=== PATIENT | male | born 1975 | race African-American/Black ===

== ENCOUNTER 2019-08-05 17:21 | Emergency (ER) | payer BC, OTHER ==
--- NOTE | 2019-08-05 18:23 | RAD REPORT ---
EXAM DESCRIPTION: CT - Head Brain Wo Cont - 08/05/2019 6:13 pm CLINICAL HISTORY: Headache COMPARISON: None. TECHNIQUE: Computed axial tomography of the head was obtained. IV contrast was not requested. All CT scans are performed using dose optimization technique as appropriate and may include automated exposure control or mA/KV adjustment according to patient size. FINDINGS: An intracranial bleed is not seen . The ventricles are normal in caliber. No extra-axial fluid collection is noted. Fluid within the sinuses/ mastoids is not seen. IMPRESSION: No acute intracranial abnormality is seen. If patient's symptoms persist MRI of the bra in would be recommended.
--- NOTE | 2019-08-05 18:38 | EDPHYS ---
Physician Documentation [facility] Name: Petar Montano Age: 44 yrs Sex: Male : 1975 Arrival Date: 08/05/2019 Time: 17:25 Bed 2 Private MD: ED Physician Bridger Dos Santos HPI: 08/04 18:25 This 44 yrs old Black Male presents to ER via Ambulatory with complaints of Headache, pm1 Dizziness. 18:25 The patient complains of pain to the right base of the skull. The patient describes the pm1 headache as aching. Onset: The symptoms/episode began/occurred yesterday. Associated signs and symptoms: Pertinent positives: dizziness, bump on scalp at the area of headache, Pertinent negatives: fever, nausea, neck stiffness, paresthesias, Photophobia rash, vomiting. Headache History: Denies prior headaches. The symptoms are alleviated by nothing. the symptoms are aggravated by nothing. The patient has not experienced similar symptoms in the past. The patient has not recently seen a physician. Historical: - Allergies: 17:43 No Known Allergies; iw - Home Meds: 17:43 None [Active]; iw - PMHx: 17:49 Hypertension; sv - PSHx: 17:43 None; iw - Immunization history:: Adult Immunizations. - Social history:: Smoking status: . ROS: 18:25 Constitutional: Negative for fever, chills, and weight loss, Neck: Negative for injury, pm1 pain, and swelling, Cardiovascular: Negative for chest pain, palpitations, and edema, Respiratory: Negative for shortness of breath, cough, wheezing, and pleuritic chest pain, Abdomen/GI: Negative for abdominal pain, nausea, vomiting, diarrhea, and constipation, Back: Negative for injury and pain, MS/Extremity: Negative for injury and deformity. 18:25 Skin: Positive for swelling, of the right base of the skull. 18:25 Neuro: Positive for dizziness, headache, Negative for numbness, tingling, weakness. Exam: 18:25 Constitutional: This is a well developed, well nourished patient who is awake, alert, pm1 and in no acute distress. 18:25 Neck: Trachea midline, no thyromegaly or masses palpated, and no cervical lymphadenopathy. Supple, full range of motion without nuchal rigidity, or vertebral point tenderness. No Meningismus. Chest/axilla: Normal chest wall appearance and motion. Nontender with no deformity. No lesions are appreciated. 18:25 Back: No spinal tenderness. No costovertebral tenderness. Full range of motion. 18:25 MS/ Extremity: Pulses equal, no cyanosis. Neurovascular intact. Full, normal range of motion. 18:25 Head/face: Noted is no obvious of injury or deformity except tenderness, that is mild, of the right base of the skull, of the Small acne/razor bump present to area of tenderness. 18:25 Cardiovascular: Exam negative for acute changes, Rate: normal, Rhythm: regular, Pulses: no pulse deficits are appreciated, Edema: is not appreciated. 18:25 Respiratory: Exam negative for acute changes, shortness of breath, wheezing. 18:25 Abdomen/GI: Inspection: obese Palpation: abdomen is soft and non-tender, in all quadrants, mass, is not appreciated, rebound tenderness, is not appreciated. 18:25 Skin: Appearance: normal except for affected area, lesion(s), probable papule(s) noted, located on the right base of the skull. 18:25 Neuro: Exam negative for acute changes, focal neuro deficits, Orientation: is normal, Mentation: is normal, appropriate for stated age, Motor: is normal, moves all fours, strength is normal, strength is 5/5 in all extremities. Vital Signs: 17:49 BP 148 / 84; Pulse 58; Resp 16; Temp 99; Pulse Ox 99% ; sv MDM: 17:53 Patient medically screened. pm1 18:31 Data reviewed: vital signs. Data interpreted: Pulse oximetry: on room air is 99 %. pm1 Interpretation: normal. 18:33 Counseling: I had a detailed discussion with the patient and/or guardian regarding: the pm1 historical points, exam findings, and any diagnostic results supporting the discharge/admit diagnosis, radiology results, the need for outpatient follow up, to return to the emergency department if symptoms worsen or persist or if there are any questions or concerns that arise at home. 08/04 17:58 Order name: CT Head Brain wo Cont; Complete Time: 18:31 pm1 Administered Medications: No medications were administered Disposition: 18:53 Co-signature as Attending Physician, Bridger Dos Santos MD. rn Disposition: 08/05/19 18:37 Discharged to Home. Impression: Headache, Folliculitis. - Condition is Stable. - Discharge Instructions: General Headache Without Cause, Folliculitis. - Prescriptions for Bactrim DS 800- 160 mg Oral Tablet - take 1 tablet by ORAL route every 12 hours for 10 days; 20 tablet. - Medication Reconciliation Form, Thank You Letter, Antibiotic Education, Prescription Opioid Use form. - Follow up: Emergency Department; When: As needed; Reason: Worsening of condition. Follow up: Private Physician; When: 2 - 3 days; Reason: Recheck today's complaints, Continuance of care, Re-evaluation by your physician. - Problem is new. - Symptoms have improved. Signatures: Dispatcher [employer] EDUna Merritt RN RN sv Williams, Irene, RN RN iw Bridger Dos Santos MD MD rn Marinas, Patrick, [facility] REGISTERED NURSE pm1 Corrections: (The following items were deleted from the chart) 17:49 17:43 PMHx: None; [facility] 18:45 18:37 08/05/2019 18:37 Discharged to Home. Impression: Headache; Acne, unspecified. pm1 Condition is Stable. Forms are Medication Reconciliation Form, Thank You Letter, Antibiotic Education, Prescription Opioid Use. Follow up: Emergency Department; When: As needed; Reason: Worsening of condition. Follow up: Private Physician; When: 2 - 3 days; Reason: Recheck today's complaints, Continuance of care, Re-evaluation by your physician. Problem is new. Symptoms have improved. pm1 18:51 18:45 08/05/2019 18:37 Discharged to Home. Impression: Headache; Folliculitis. sv Condition is Stable. Forms are Medication Reconciliation Form, Thank You Letter, Antibiotic Education, Prescription Opioid Use. Follow up: Emergency Department; When: As needed; Reason: Worsening of condition. Follow up: Private Physician; When: 2 - 3 days; Reason: Recheck today's complaints, Continuance of care, Re-evaluation by your physician. Problem is new. Symptoms have improved. pm1
--- NOTE | 2019-08-05 18:38 | ER ---
Nurse's Notes [facility] Name: Petar Montano Age: 44 yrs Sex: Male : 1975 Arrival Date: 08/05/2019 Time: 17:25 Bed 2 Private MD: Diagnosis: Headache;Folliculitis Presentation: 08/04 17:41 Chief complaint: Patient states: noticed some swelling to back right side of head iw today, had headache yesterday. Coronavirus screen: Proceed with normal triage. Patient denies a cough. Patient denies shortness of breath or difficulty breathing. Patient denies travel on a cruise ship or to a country the [facility] currently lists as an affected area. Patient denies contact with known and/or suspected case of COVID-19. Ebola Screen: Patient negative for fever greater than or equal to 101.5 degrees Fahrenheit, and additional compatible Ebola Virus Disease symptoms Patient denies exposure to infectious person. Patient denies travel to an Ebola-affected area in the 21 days before illness onset. No symptoms or risks identified at this time. Initial Sepsis Screen: Does the patient meet any 2 criteria? No. Patient's initial sepsis screen is negative. Does the patient have a suspected source of infection? No. Patient's initial sepsis screen is negative. Risk Assessment: Do you want to hurt yourself or someone else? Patient reports no desire to harm self or others. Onset of symptoms was August 05, 2019. 17:41 Method Of Arrival: Ambulatory iw 17:41 Acuity: STELLA 4 iw Triage Assessment: 17:45 Headache History: The patient has had previous headaches and this one is similar to sv previous episodes. General: Appears in no apparent distress. comfortable, well developed, Behavior is calm, cooperative, appropriate for age. Pain: Complains of pain in right base of the skull Pain currently is 2 out of 10 on a pain scale. Pain began today Is intermittent, Also complains of no other associated symptoms. Neuro: Level of Consciousness is awake, alert, obeys commands, Oriented to person, place, time, situation, Moves all extremities. Full function Gait is steady, Speech is normal. Neuro: Reports dizziness. Respiratory: Airway is patent Respiratory effort is even, unlabored, Respiratory pattern is regular, symmetrical. Derm: Skin is pink, warm \T\ dry. Derm: pinpoint area noted to the right base of the skull. Pt reports that he clips his hair and gets ingrown hairs at times. Musculoskeletal: Range of motion: intact in all extremities. Historical: - Allergies: 17:43 No Known Allergies; iw - Home Meds: 17:43 None [Active]; iw - PMHx: 17:49 Hypertension; sv - PSHx: 17:43 None; iw - Immunization history:: Adult Immunizations. - Social history:: Smoking status: . Screenin:49 Abuse screen: Denies threats or abuse. Denies injuries from another. Nutritional sv screening: No deficits noted. Tuberculosis screening: No symptoms or risk factors identified. Fall Risk None identified. Assessment: 18:50 Reassessment: Patient appears in no apparent distress at this time. No changes from sv previously documented assessment. Patient and/or family updated on plan of care and expected duration. Pain level reassessed. Patient is alert, oriented x 3, equal unlabored respirations, skin warm/dry/pink. Vital Signs: 17:49 BP 148 / 84; Pulse 58; Resp 16; Temp 99; Pulse Ox 99% ; sv ED Course: 17:25 Patient arrived in ED. am2 17:42 Triage completed. iw 17:43 Una Moya, RN is Primary Nurse. sv 17:49 Arm band placed on Patient placed in an exam room, on a stretcher. sv 17:49 Patient has correct armband on for positive identification. Bed in low position. Call sv light in reach. Pulse ox on. NIBP on. Door closed. Head of bed elevated. 17:50 Clarence Archer NP is PHCP. pm1 17:50 Bridger Dos Santos MD is Attending Physician. pm1 18:[address] Scan. sv 18:14 CT Head Brain wo Cont In Process Unspecified. EDMS 18:50 No provider procedures requiring assistance completed. Patient did not have IV access sv during this emergency room visit. Administered Medications: No medications were administered Outcome: 18:37 Discharge ordered by . pm1 18:50 Discharged to home ambulatory. sv 18:50 Condition: stable 18:50 Discharge instructions given to patient, Instructed on discharge instructions, follow up and referral plans. medication usage, wound care, Demonstrated understanding of instructions, follow-up care, medications, wound care, Prescriptions given X 1. 18:51 Patient left the ED. sv Signatures: Dispatcher [employer] Una Palacios RN RN sv Williams, Irene, RN RN iw Clarence Archer, TANK PUMPER TANK PUMPER pm1 Katlin Rg am2 Corrections: (The following items were deleted from the chart) 17:49 17:43 PMHx: None; kun holloway
== END 2019-08-05 18:51 | disposition home or self-care (01) ==
LOC: ER 17:21
DX: L73.9 Follicular disorder, unspecified (principal); I10 Essential (primary) hypertension
CPT/HCPCS: 70450; 99283

== ENCOUNTER 2019-11-06 16:15 | Emergency (ER) | payer BC, SELFPAY ==
[2019-11-06 17:33] LABS: Absolute Lymphocytes (CBC) 1.9 K/uL (0.7-4.9); Basophils % 0.6 % (0-1.3); Hematocrit 45.9 % (39.6-49.0); MPV 9.8 fL (7.6-11.3); RBC Red Blood Cell Count 5.24 M/uL (4.33-5.43)
[2019-11-06 17:57] LABS: ALT/SGPT 44 U/L (12-78); AST/SGOT 30 U/L (15-37); Albumin 3.7 g/dL (3.4-5.0); Alkaline Phosphatase 126 U/L (45-117); BUN Blood Urea Nitrogen 12 mg/dL (7-18); Bicarbonate 26 mmol/L (21-32); Bilirubin Direct < 0.1 mg/dL (0-0.2); Bilirubin Total 0.3 mg/dL (0.2-1.0); Glucose Level 106 mg/dL (74-106); Magnesium 2.2 mg/dL (1.8-2.4); NT PRO-BNP 92 pg/mL (<125); Potassium 4.1 mmol/L (3.5-5.1); Protein, Total 8.4 g/dL (6.4-8.2); Sodium Level 143 mmol/L (136-145); Troponin (Emerg Dept Use Only) < 0.02 ng/mL (0.0-0.045)
[2019-11-06 18:04] LABS: Protime INR 1.1
--- NOTE | 2019-11-06 18:04 | RAD REPORT ---
EXAM DESCRIPTION: RAD - Chest Single View - 11/06/2019 5:56 pm CLINICAL HISTORY: CHEST PAIN Chest pain. COMPARISON: No comparisons FINDINGS: Portable technique limits examination quality. The lungs are grossly clear. The heart is normal in size. No displaced fractures. IMPRESSION: No acute intrathoracic process suspected.
[2019-11-06] MEDS ORDERED: DIAZEPAM 5 MG TABLET ONE (18:08)
--- NOTE | 2019-11-06 18:26 | ER ---
Nurse's Notes [facility] Name: Petar Montano Age: 44 yrs Sex: Male : 1975 Arrival Date: 11/06/2019 Time: 16:16 Bed 2 Private MD: Diagnosis: Chest pain, unspecified;Essential (primary) hypertension Presentation: 11/05 16:48 Chief complaint: Patient states: both calves and thighs have been cramping and has been iw having pain in left side of chest X 3 days. intermittent sharp pains, also has been feeling dizzy. Coronavirus screen: Client denies travel out of the [place] in the last 14 days. Patient denies a cough. Patient denies shortness of breath or difficulty breathing. Patient denies measured and/or subjective temperature greater than 100.4F prior to today's visit. Patient denies travel on a cruise ship or to a country the [facility] currently lists as an affected area. Patient denies contact with known and/or suspected case of COVID-19. Ebola Screen: Patient negative for fever greater than or equal to 101.5 degrees Fahrenheit, and additional compatible Ebola Virus Disease symptoms Patient denies exposure to infectious person. Patient denies travel to an Ebola-affected area in the 21 days before illness onset. No symptoms or risks identified at this time. Initial Sepsis Screen: Does the patient meet any 2 criteria? No. Patient's initial sepsis screen is negative. Does the patient have a suspected source of infection? No. Patient's initial sepsis screen is negative. Risk Assessment: Do you want to hurt yourself or someone else? Patient reports no desire to harm self or others. Onset of symptoms was November 03, 2019. 16:48 Method Of Arrival: Ambulatory iw 16:48 Acuity: STELLA 3 iw Triage Assessment: 16:50 General: Appears in no apparent distress. uncomfortable, obese, Behavior is bp cooperative, appropriate for age, anxious. Pain: Complains of pain in chest, right leg and left leg. EENT: No deficits noted. Neuro: No deficits noted. Cardiovascular: Rhythm is sinus rhythm. Respiratory: Airway is patent Respiratory effort is even, unlabored, Respiratory pattern is regular, symmetrical, Breath sounds are clear bilaterally. GI: No signs and/or symptoms were reported involving the gastrointestinal system. : No signs and/or symptoms were reported regarding the genitourinary system. Derm: No deficits noted. Musculoskeletal: No deficits noted. Historical: - Allergies: 16:50 No Known Allergies; iw - Home Meds: 16:50 None [Active]; iw - PMHx: 16:50 Hypertension; iw - PSHx: 16:50 None; iw - Immunization history:: Adult Immunizations. - Social history:: Smoking status: Patient denies any tobacco usage or history of. Screenin:52 Abuse screen: Denies threats or abuse. Denies injuries from another. Nutritional bp screening: No deficits noted. Tuberculosis screening: No symptoms or risk factors identified. Fall Risk None identified. Assessment: 16:50 General: SEE TRIAGE NOTE. bp 18:00 Reassessment: ALL CURRENT ORDERS COMPLETED. VS STABLE ON MONITOR. bp 19:29 Reassessment: Patient appears in no apparent distress at this time. Patient and/or jd3 family updated on plan of care and expected duration. Pain level reassessed. Patient is alert, oriented x 3, equal unlabored respirations, skin warm/dry/pink. Patient states feeling better. Vital Signs: 16:48 BP 187 / 64; Pulse 65; Resp 18 S; Temp 98.3; Pulse Ox 98% on R/A; Weight 174.63 kg; iw Height 6 ft. 2 in. (187.96 cm); Pain 4/10; 18:00 BP 173 / 84; Pulse 62; Resp 21; Pulse Ox 97% ; bp 18:35 BP 136 / 92; Pulse 58; Resp 17; Temp 98.5; Pulse Ox 97% ; bp 16:48 Body Mass Index 49.43 (174.63 kg, 187.96 cm) iw ED Course: 16:16 Patient arrived in ED. ag5 16:50 Triage completed. iw 17:01 Reynaldo Yi, RN is Primary Nurse. bp 17:15 Initial lab(s) drawn, by me, sent to lab. EKG done, by ED staff, reviewed by Travis Santiago MD. Inserted saline lock: 22 gauge in left antecubital area, using aseptic technique. Blood collected. 17:29 Izzy Johns FNP-C is PHCP. snw 17:29 Travis Santiago MD is Attending Physician. snw 17:52 Arm band placed on. bp 17:52 Patient has correct armband on for positive identification. Bed in low position. Call bp light in reach. Side rails up X2. monitoring and evaluation advisor on. Pulse ox on. NIBP on. 17:56 XRAY Chest (1 view) In Process Unspecified. EDMS 18:35 No provider procedures requiring assistance completed. Patient maintains SpO2 bp saturation greater than 95% on room air. 19:29 IV discontinued, intact, bleeding controlled, No redness/swelling at site. Pressure jd3 dressing applied. Administered Medications: 17:50 Drug: Valium 5 mg Route: PO; bp 18:21 Follow up: Response: No adverse reaction bp Outcome: 18:26 Discharge ordered by . doug 19:29 Discharged to home ambulatory, with family. jd3 19:29 Condition: stable 19:29 Discharge instructions given to patient, Instructed on discharge instructions, follow up and referral plans. medication usage, Demonstrated understanding of instructions, follow-up care, medications, Prescriptions given X 1. 19:30 Patient left the ED. jd3 Signatures: Dispatcher [employer] EDMS Izzy Johns, MARCIO-C SOLE MOLDER-Csnw Ruba Portillo, RN RN Luis Garces RN RN jd3 Peltier, Brian, RN RN bp Gaskin, Ajare ag5 Tiffany Lord kj1 Corrections: (The following items were deleted from the chart) 16:50 16:48 Pulse 65bpm; Resp 18bpm; Spontaneous; Pulse Ox 98% RA; Temp 98.3F; 174.63 kg; iw Height 6 ft. 2 in.; BMI: 49.4; Pain 4/10; iw
--- NOTE | 2019-11-06 18:26 | EDPHYS ---
Physician Documentation [facility] Name: Petar Montano Age: 44 yrs Sex: Male : 1975 Arrival Date: 11/06/2019 Time: 16:16 Bed 2 Private MD: ED Physician Travis Santiago HPI: 11/05 19:07 This 44 yrs old Black Male presents to ER via Ambulatory with complaints of Chest Pain, snw Leg Pain, Arm Pain. 19:07 Onset: The symptoms/episode began/occurred gradually, x 3 days, pt was on snw anti-hypertensives several years ago but stopped taking them about a year ago. Associated signs and symptoms: The patient has no apparent associated signs or symptoms. It is unknown whether or not the patient has had similar symptoms in the past. The patient has not recently seen a physician. Historical: - Allergies: 16:50 No Known Allergies; iw - Home Meds: 16:50 None [Active]; iw - PMHx: 16:50 Hypertension; iw - PSHx: 16:50 None; iw - Immunization history:: Adult Immunizations. - Social history:: Smoking status: Patient denies any tobacco usage or history of. ROS: 19:05 Constitutional: Negative for fever, chills, and weight loss, Eyes: Negative for injury, snw pain, redness, and discharge, ENT: Negative for injury, pain, and discharge, Neck: Negative for injury, pain, and swelling, Respiratory: Negative for shortness of breath, cough, wheezing, and pleuritic chest pain, Abdomen/GI: Negative for abdominal pain, nausea, vomiting, diarrhea, and constipation, Back: Negative for injury and pain, : Negative for injury, bleeding, discharge, and swelling. 19:05 Skin: Negative for injury, rash, and discoloration, Neuro: Negative for headache, weakness, numbness, tingling, and seizure. 19:05 Cardiovascular: Positive for chest pain, Sharp, recurrent. 19:05 MS/extremity: Positive for lower extremity cramping. Exam: 18:24 Constitutional: This is a well developed, obese patient who is awake, alert, and in no snw acute distress. Head/Face: Normocephalic, atraumatic. Eyes: Pupils equal round and reactive to light, extra-ocular motions intact. Lids and lashes normal. Conjunctiva and sclera are non-icteric and not injected. Cornea within normal limits. Periorbital areas with no swelling, redness, or edema. ENT: Nares patent. No nasal discharge, no septal abnormalities noted. Tympanic membranes are normal and external auditory canals are clear. Oropharynx with no redness, swelling, or masses, exudates, or evidence of obstruction, uvula midline. Mucous membranes moist. Neck: Trachea midline, no thyromegaly or masses palpated, and no cervical lymphadenopathy. Supple, full range of motion without nuchal rigidity, or vertebral point tenderness. No Meningismus. Chest/axilla: Normal chest wall appearance and motion. Nontender with no deformity. No lesions are appreciated. Cardiovascular: Regular rate and rhythm with a normal S1 and S2. No gallops, murmurs, or rubs. Normal PMI, no JVD. No pulse deficits. Respiratory: Lungs have equal breath sounds bilaterally, clear to auscultation and percussion. No rales, rhonchi or wheezes noted. No increased work of breathing, no retractions or nasal flaring. Abdomen/GI: Soft, non-tender, with normal bowel sounds. No distension or tympany. No guarding or rebound. No evidence of tenderness throughout. Back: No spinal tenderness. No costovertebral tenderness. Full range of motion. Skin: Warm, dry with normal turgor. Normal color with no rashes, no lesions, and no evidence of cellulitis. MS/ Extremity: Pulses equal, no cyanosis. Neurovascular intact. Full, normal range of motion. Neuro: Awake and alert, GCS 15, oriented to person, place, time, and situation. Cranial nerves II-XII grossly intact. Motor strength 5/5 in all extremities. Sensory grossly intact. Cerebellar exam normal. Normal gait. Psych: Awake, alert, with orientation to person, place and time. Behavior, mood, and affect are within normal limits. Vital Signs: 16:48 BP 187 / 64; Pulse 65; Resp 18 S; Temp 98.3; Pulse Ox 98% on R/A; Weight 174.63 kg; iw Height 6 ft. 2 in. (187.96 cm); Pain 4/10; 18:00 BP 173 / 84; Pulse 62; Resp 21; Pulse Ox 97% ; bp 18:35 BP 136 / 92; Pulse 58; Resp 17; Temp 98.5; Pulse Ox 97% ; bp 16:48 Body Mass Index 49.43 (174.63 kg, 187.96 cm) iw MDM: 17:57 Patient medically screened. snw 18:27 Data reviewed: vital signs, nurses notes. Data interpreted: Pulse oximetry: on room air snw is 97 %. Interpretation: acceptable. Counseling: I had a detailed discussion with the patient and/or guardian regarding: the historical points, exam findings, and any diagnostic results supporting the discharge/admit diagnosis, the presence of at least one elevated blood pressure reading (>120/80) during this emergency department visit, lab results, radiology results, the need for outpatient follow up, to return to the emergency department if symptoms worsen or persist or if there are any questions or concerns that arise at home. Special discussion: Based on the patient's history, exam, and Dx evaluation, there is no indication for emergent intervention or inpatient Tx. It is understood by the patient/guardian that if the Sx's persist or worsen they need to return immediately for re-evaluation. I have referred the patient to see his PCP for further evaluation of high blood pressure. Based on the history and exam findings, there is no indication for further emergent testing or inpatient evaluation. I discussed with the patient/guardian the need to see the unmanned equipment operator for further evaluation of the symptoms. I discussed with the patient/guardian the need to see the primary care provider for further evaluation of the symptoms. 11/05 17:01 Order name: Basic Metabolic Panel; Complete Time: 18:01 bp 11/05 17:01 Order name: CBC with Diff; Complete Time: 22:21 bp 11/05 17:01 Order name: LFT's; Complete Time: 18:01 bp 11/05 17:01 Order name: Magnesium; Complete Time: 18:01 bp 11/05 17:01 Order name: NT PRO-BNP; Complete Time: 18:01 bp 11/05 17:01 Order name: PT-INR; Complete Time: 18:13 bp 11/05 17:01 Order name: Troponin (emerg Dept Use Only); Complete Time: 18:01 bp 11/05 17:01 Order name: XRAY Chest (1 view); Complete Time: 18:13 bp 11/05 17:01 Order name: EKG; Complete Time: 17:02 bp 11/05 17:01 Order name: Cardiac monitoring; Complete Time: 17:32 bp 11/05 17:01 Order name: EKG - Nurse/Tech; Complete Time: 17:33 bp 11/05 17:01 Order name: IV Saline Lock; Complete Time: 17:33 bp 11/05 19:27 Order name: CBC Smear Scan; Complete Time: 22:21 EDMI 11/05 17:01 Order name: Labs collected and sent; Complete Time: 17:33 bp 11/05 17:01 Order name: O2 Per Protocol; Complete Time: 17:50 bp 11/05 17:01 Order name: O2 Sat Monitoring; Complete Time: 17:50 bp Administered Medications: 17:50 Drug: Valium 5 mg Route: PO; bp 18:21 Follow up: Response: No adverse reaction bp Disposition: 11/06 11:38 Co-signature as Attending Physician, Travis Santiago MD I agree with the assessment and kdr plan of care. Disposition: 11/06/19 18:26 Discharged to Home. Impression: Chest pain, unspecified, Essential (primary) hypertension. - Condition is Stable. - Discharge Instructions: Nonspecific Chest Pain, Hypertension, Heart Disease Prevention, How to Take Your Blood Pressure, [id number], Aspirin and Your Heart, DASH Eating Plan, Rehydration, Adult, Managing Your Hypertension, Form - Blood Pressure Record Sheet. - Prescriptions for Norvasc 5 mg Oral Tablet - take 1 tablet by ORAL route once daily; 20 tablet. - Work release form, Medication Reconciliation Form, Thank You Letter, Antibiotic Education, Prescription Opioid Use form. - Follow up: Emergency Department; When: As needed; Reason: Worsening of condition. Follow up: Private Physician; When: 2 - 3 days; Reason: Recheck today's complaints, Continuance of care, Re-evaluation by your physician. Signatures: Dispatcher [employer] EDMI Travis Santiago MD MD kdr Waters, Shelly, BIG DATA ENGINEER-C BIG DATA ENGINEER-Csnw Ruba Portillo, Luis Tineo RN, RN RN [id number] Peltier, Brian, RN RN bp Corrections: (The following items were deleted from the chart) 11/05 19:30 18:26 11/06/2019 18:26 Discharged to Home. Impression: Chest pain, unspecified; jd3 Essential (primary) hypertension. Condition is Stable. Forms are Medication Reconciliation Form, Thank You Letter, Antibiotic Education, Prescription Opioid Use. Follow up: Emergency Department; When: As needed; Reason: Worsening of condition. Follow up: Private Physician; When: 2 - 3 days; Reason: Recheck today's complaints, Continuance of care, Re-evaluation by your physician. snw
[2019-11-06 19:26] LABS: Blood Morphology Comment NOT SEEN (NOT SEEN); Platelet Estimate ADEQ; Urine White Blood Cell Casts OK
[2019-11-06 19:38] VITALS: O2SAT 97
[2019-11-06 19:39] VITALS: BP 136/92; TEMP 98.5
== END 2019-11-06 19:30 | disposition home or self-care (01) ==
LOC: ER 16:15
DX: I10 Essential (primary) hypertension (principal)
CPT/HCPCS: 36415; 71045; 80048; 80076; 83735; 83880; 84484; 85025; 85610; 93005; 99285